=== PATIENT | female | born 1990 | race Caucasian/White ===

== ENCOUNTER 2020-06-22 13:24 | Emergency (ER) | payer MEDICAID ==
[~2020-06-22] VITALS: Ht 170.2 cm; Wt 77.1 kg
[2020-06-22 13:45] VITALS: BP 126/71
--- NOTE | 2020-06-22 13:45 | NUR ---
ED Nurse Note: Pt walked in from home c/o left lower abd pain, vomiting x 3, and left leg pain that started today. Pt denies diarrhea. Respirations even and unlabored on room air. vitals stable as documented. A+Ox4, speaking in complete sentences. Addendum: 06/22/20 at 1514 by [email or web address] ED Nurse Note: pt also having vaginal spotting
[2020-06-22] MEDS: Morphine Sulfate 2mg/ml Inj(IV/IM USE ONLY) IVP ONE ×2 (14:42→14:51)
--- NOTE | 2020-06-22 14:54 | NUR ---
ED Nurse Note: US @ bedside
[2020-06-22 15:34] LABS: ANION GAP 10 mmol/L (5-15); BLOOD UREA NITROGEN 7 mg/dL (7-18); CALCIUM 8.8 MG/DL (8.5-10.1); CARBON DIOXIDE 25 MMOL/L (21-32); CHLORIDE 104 MMOL/L (98-107); CREATININE 0.9 MG/DL (0.55-1.30); POTASSIUM 3.7 MMOL/L (3.5-5.1); SODIUM 139 MMOL/L (136-145)
[2020-06-22 15:39] LABS: ALANINE AMINOTRANSFERASE 17 U/L (12-78); ALBUMIN/GLOBULIN RATIO 1.1 (1.0-2.7); ALKALINE PHOSPHATASE 64 U/L (46-116); ASPARTATE AMINO TRANSFERASE 19 U/L (15-37); BILIRUBIN,TOTAL 0.8 MG/DL (0.2-1.0)
[2020-06-22 15:46] LABS: HEMATOCRIT 49.9 % (37.0-47.0); HEMOGLOBIN 16.2 G/DL (12.0-16.0); MEAN CORPUSCULAR VOLUME 111 FL (80-99); PLATELET COUNT 336 K/UL (150-450); RED BLOOD COUNT 4.51 M/UL (4.20-5.40); RED CELL DISTRIBUTION WIDTH 13.3 % (11.6-14.8); WHITE BLOOD COUNT 8.4 K/UL (4.8-10.8)
[2020-06-22 16:00] VITALS: BP 131/78
[2020-06-22] MEDS ORDERED: Morphine Sulfate 2mg/ml Inj(IV/IM USE ONLY) ONE (16:24)
[2020-06-22] MEDS ORDERED: Morphine Sulfate 2mg/ml Inj(IV/IM USE ONLY) IVP ONE (16:30)
--- NOTE | 2020-06-22 16:41 | Diagnostic Imaging Report ---
Indication: Pelvic pain, vaginal spotting for 3 weeks, positive test Technique: Transabdominal and transvaginal images of the pelvis. Doppler interrogation of the ovaries Comparison: none Findings: Uterus measures 8.1 cm length by 4.1 cm AP. The endometrium measures 4 mm thick. No myometrial abnormality. No intrauterine demonstrated. Free fluid is seen within the pelvis. The right ovary is somewhat enlarged, measuring 5.4 cm long axis dimension, demonstrates a benign-appearing cyst. It demonstrates normal Doppler signal. The left ovary is only visible on transabdominal images, measures 2.4 cm length, demonstrates normal Doppler signal. Impression: No intrauterine demonstrated. Differential considerations include very early , spontaneous , ectopic . Correlate with serial beta-hCGs, consider follow-up sonography as indicated. Free cul-de-sac fluid, most likely physiologic
--- NOTE | 2020-06-22 17:40 | Emergency Room Report ---
History of Present Illness General Chief Complaint: Abdominal Pain Source: Patient (Janeth Anand) Present Illness HPI 30-year-old female with no known past medical history , G2, here complaining of 1 week of right-sided abdominal pain especially right lower quadrant rating a 10 out of 10 without radiation. Also complains of vaginal spotting. Reports that she is not taking any control and has not had a menstruation in about a month. Denies any headache and dizziness. Denies nausea or vomiting. Denies any drug use. Denies cough and congestion, diarrhea. Reports that she has history of ectopic in the past. Sage cassandra at first refused any pain medication however kept insisting that however she going to be out of pain but did not want to take pain medication and did not want to take side effects. Upon ultrasound patient large ovarian cyst was observed right ovarian however no IUP noted most likely due to too early in the . [facility] Dr. Marte was consulted in regards to presentation of right ovary and ruling out possibility of ectopic . Patient was educated to follow-up with Dr. Marte for further evaluation. Patient kept asking the same question multiple times having boyfriend at bedside constantly interrupting my explanation. Patient could not understand how she can be and had an ovarian cyst. I explained the patient several times that patient is to follow- up with [facility]ICE TE[facility]/WELDER patient ordered as patient is based on hCG quantitative. No IUP was seen in OB ultrasound most likely due to too early in the however patient is to follow-up with [facility] to rule out other complications. Sent down progesterone level was done today at ED. I had my nurse Melyssa as a witness. (Janeth Anand) Allergies: Coded Allergies: No Known Allergies (Unverified , 06/22/20) COVID-19 Screening Contact w/high risk pt: No Experienced COVID-19 symptoms?: No COVID-19 Testing performed [employer]: Yes - a month ago COVID-19 Screening: Negative COVID-19 COVID-19 Testing Source: clinic (Janeth Anand) Patient History Past Medical History: see triage record Past Surgical History: none Pertinent Family History: none Last Menstrual Period: 2 months ago Now: No Immunizations: UTD Reviewed Nursing Documentation: PMH: Agreed; PSxH: Agreed (Janeth Anand) Nursing Documentation-H Past Medical History: No Stated History (Janeth Anand) Review of Systems All Other Systems: negative except mentioned in HPI (Janeth Anand) Physical Exam Vital Signs Date Time Temp Pulse Resp B/P (MAP) Pulse Ox O2 Delivery O2 Flow Rate FiO2 06/22/20 13:37 98.4 73 19 119/76 (90) 98 Room Air Sp02 EP Interpretation: reviewed General Appearance: no apparent distress, alert, GCS 15, non-toxic Head: normocephalic, atraumatic Eyes: bilateral eye normal inspection, bilateral eye PERRL ENT: hearing grossly normal, normal pharynx, no angioedema, normal voice Neck: full range of motion, supple, thyroid normal, no meningismus, no bony tend, supple/symm/no masses Respiratory: no respiratory distress, no retraction Cardiovascular #1: no edema, no gallop Gastrointestinal: non tender, soft, no mass, no organomegaly, no peritonitis, no bruit, non-distended, no guarding Genitourinary: no CVA tenderness Musculoskeletal: back normal Neurologic: alert, motor strength/tone normal, oriented x3, sensory intact, responsive, speech normal Psychiatric: judgement/insight normal, memory normal, mood/affect normal, no suicidal/homicidal ideation Skin: no rash Lymphatic: no adenopathy (Janeth Anand) Medical Decision Making PA Attestation All diagnosis and treatment plans were discussed and reviewed by my supervising physician Dr. Lopez (Janeth Anand) Diagnostic Impression: Primary Impression: Elevated serum hCG Additional Impressions: Ovarian cyst UTI (urinary tract infection) ER Course 30-year-old female with no known past medical history , G2, here complaining of 1 week of right-sided abdominal pain especially right lower quadrant rating a 10 out of 10 without radiation. Also complains of vaginal spotting. Reports that she is not taking any control and has not had a menstruation in about a month. Denies any headache and dizziness. Denies nausea or vomiting. Denies any drug use. Denies cough and congestion, diarrhea. Reports that she has history of ectopic in the past. Patient at first refused any pain medication however kept insisting that however she going to be out of pain but did not want to take pain medication and did not want to take side effects. Upon ultrasound patient large ovarian cyst was observed right ovarian however no IUP noted most likely due to too early in the . FILL[facility] UP Dr. Marte was consulted in regards to presentation of right ovary and ruling out possibility of ectopic . Patient was educated to follow-up with Dr. Marte for further evaluation. Patient kept asking the same question multiple times having boyfriend at bedside constantly interrupting my explanation. Patient could not understand how she can be and had an ovarian cyst. I explained the patient several times that patient is to follow- up with [facility]ELDER patient ordered as patient is based on hCG quantitative. No IUP was seen in OB ultrasound most likely due to too early in the however patient is to follow-up with [facility] to rule out other complications. Sent down progesterone level was done today at ED. I had my nurse Melyssa as a witness. Ddx considered but are not limited to: Ectopic , ruptured ovarian cyst, nonruptured ovarian cyst, UTI during , threatened , spontaneous , Vital signs: are WNL, pt. is afebrile H&PE are most consistent with: Elevated serum hCG, ovarian cyst, UTI ORDERS: UA, urine cx, CBC, CMP, abdominal ultrasound, Keflex, Tylenol ED INTERVENTIONS: Morphine Zofran DISCHARGE: At this time pt. is stable for d/c to home. Will provide printed patient care instructions, and any necessary prescriptions. Care plan and follow up instructions have been discussed with the patient prior to discharge. Medication as directed, follow-up with [facility] 24 to 48 hours, if worsening symptoms, worsening pain return to the emergency room (Janeth Anand) ER Course I was consulted by SAGE for help with medical mangement of this case. test is POSITIVE with indeterminate beta hCG. UDS was positive for marijuana. Ultrasound was obtained but was indeterminate, not able to identify a definitive IUP, no yolk sac or heart activity found Possibilities still include ectopic vs miscarriage Rh status is positive, Rhogam was not indicated. Unlikely ruptured ectopic at this time point, patients abdomen is not peritoneal, no significant tenderness. The patients presentation is not consistent with hemorrhagic ovarian cyst or torsion, and has no significant tenderness on exam. Patients hemoglobin is not severely low, vitals are hemodynamically stable, and no symptoms of severe anemia (near syncope, lightheadedness, severe fatigue), no indication for blood transfusion at this time. I spoke with Dr Marte who agrees that it is too early to say whether patient has early IUP vs ectopic at this time given stable Hgb, stable BP and vital signs, and no large free fluid on pelvic ultrasound. Does not recommend MTX at this time. He recommends outpatient follow up in 24-48 hrs with him for repeat beta hcg. He states that he will see her in his clinic. Recommends to send progesterone level prior to DC. The patient appears stable for discharge home and follow up here in the ED in 12-24 hrs for repeat HCG quant testing, reevaluation and further treatment. Strict 911 return precautions were discussed for any new, persistent or worsening symptoms. (Leann Lopez D.O.) CT/MRI/US Diagnostic Results CT/MRI/US Diagnostic Results : Imaging Test Ordered: Abdominal ultrasound Impression Findings: Uterus measures 8.1 cm length by 4.1 cm AP. The endometrium measures 4 mm thick. No myometrial abnormality. No intrauterine demonstrated. Free fluid is seen within the pelvis. The right ovary is somewhat enlarged, measuring 5.4 cm long axis dimension, demonstrates a benign-appearing cyst. It demonstrates normal Doppler signal. The left ovary is only visible on transabdominal images, measures 2.4 cm length, demonstrates normal Doppler signal. Impression: No intrauterine demonstrated. Differential considerations include very early , spontaneous , ectopic . Correlate with serial beta-hCGs, consider follow-up sonography as indicated. Free cul-de-sac fluid, most likely physiologic (Sahelimoghavami,Nahal PA) Diagnostic POCUS Bedside Ultrasound Diagnostics: Comment Transabdominal and transvaginal images of the pelvis. Doppler interrogation of the ovaries Findings: Uterus measures 8.1 cm length by 4.1 cm AP. The endometrium measures 4 mm thick. No myometrial abnormality. No intrauterine demonstrated. Free fluid is seen within the pelvis. The right ovary is somewhat enlarged, measuring 5.4 cm long axis dimension, demonstrates a benign-appearing cyst. It demonstrates normal Doppler signal. The left ovary is only visible on transabdominal images, measures 2.4 cm length, demonstrates normal Doppler signal. Impression: No intrauterine demonstrated. Differential considerations include very early , spontaneous , ectopic . Correlate with serial beta-hCGs, consider follow-up sonography as indicated. Free cul-de-sac fluid, most likely physiologic Dictated By: Ron Tejeda MD (Leann Lopez D.O.) Last Vital Signs Date Time Temp Pulse Resp B/P (MAP) Pulse Ox O2 Delivery O2 Flow Rate FiO2 06/22/20 13:45 79 20 Room Air 06/22/20 13:45 98.1 126/71 99 (Janeth Anand) Disposition: HOME, SELF-CARE Condition: Stable Scripts Acetaminophen* (ACETAMINOPHEN EXTRA STRENGTH*) 500 Mg Tablet 1000 MG ORAL Q8HR, #30 TAB 0 Refills Prov: Janeth Anand 06/22/20 Cephalexin* (KEFLEX*) 500 Mg Capsule 500 MG ORAL EVERY 12 HOURS for 7 Days, #14 CAP 0 Refills Prov: Janeth Anand 06/22/20 Referrals: [facility],REFERRING (PCP) Patient Instructions: Ovarian Cyst, [id number] Additional Instructions: Take medication as directed, follow-up with your primary care provider, you can follow-up with [facility], Dr. Marte in 24 to 48 hours, if worsening symptom return t o emergency room Janeth Anand Jun 22, 2020 17:40 Leann Lopez D.O. Jun 23, 2020 15:54
[2020-06-22] MEDS ORDERED: ACETAMINOPHEN500 M3 ORAL (17:53)
[2020-06-22] MEDS ORDERED: CEPHALEXIN500 MG ORAL (17:53)
[2020-06-22 18:15] VITALS: BP 133/78
[2020-06-22] MEDS ORDERED: Acetaminophen 500mg (ES) tab ORAL ONE (18:15)
--- NOTE | 2020-06-22 18:15 | NUR ---
ER DISCHARGE NOTE: Patient is cleared to be discharged per ERMD, pt is aox4, on room air, with stable vital signs. pt was given dc and prescription instructions, pt was able to verbalize understanding, pt id band and iv site removed without complications. pt is able to ambulate with steady gait. pt took all belongings.
[2020-06-22 18:17] LABS: APPEARANCE,URINE SLIGHTLY CLOUDY; BILIRUBIN, URINE NEGATIVE (NEGATIVE); GLUCOSE, URINE (UA) NEGATIVE (NEGATIVE); KETONES,URINE 3+ (NEGATIVE); LEUKOCYTE ESTERASE ,URINE 1+ (NEGATIVE); NITRITE,URINE NEGATIVE (NEGATIVE); PH,URINE 8 (4.5-8.0); PROTEIN,URINE 2+ (NEGATIVE); UROBILINOGEN,URINE 1 MG/DL (0.0-1.0)
[2020-06-22 18:26] LABS: COLOR,URINE RED
--- NOTE | 2020-06-23 11:52 | Emergency Room Report ---
Physical Exam Vital Signs Date Time Temp Pulse Resp B/P (MAP) Pulse Ox O2 Delivery O2 Flow Rate FiO2 06/22/20 13:37 98.4 73 19 119/76 (90) 98 Room Air Medical Decision Making Diagnostic Impression: Primary Impression: Elevated serum hCG Additional Impressions: Ovarian cyst UTI (urinary tract infection) ER Course Contacted by radiology this morning at on review of ultrasound from patient's visit There was noted to be some material within the fluid in the cul-de-sac causing increased concern for ruptured ectopic . Patient was contacted at home and informed of this. She states she is feeling better and has made an appointment through her PMD to see [facility] [employer]. I instructed her to call this [employer] [employer] DRIVER and inform her of these new findings to be seen as soon as possible for repeat evaluation, repeat imaging and further lab test as needed. He was instructed to call records department for copies of these reports and labs. I also instructed her to return to this emergency department should she have any new or worsening symptoms or if she wishes to seek reevaluation here. She understood and agreed with this plan. Last Vital Signs Date Time Temp Pulse Resp B/P (MAP) Pulse Ox O2 Delivery O2 Flow Rate FiO2 06/22/20 18:15 98.3 79 20 133/78 98 Room Air Disposition: HOME, SELF-CARE Condition: Stable Scripts Acetaminophen* (ACETAMINOPHEN EXTRA STRENGTH*) 500 Mg Tablet 1000 MG ORAL Q8HR, #30 TAB 0 Refills Prov: Janeth Anand 06/22/20 Cephalexin* (KEFLEX*) 500 Mg Capsule 500 MG ORAL EVERY 12 HOURS for 7 Days, #14 CAP 0 Refills Prov: Janeth Anand 06/22/20 Referrals: [facility],REFERRING (PCP) Juarez Marte MD Patient Instructions: Ovarian Cyst, [id number] Additional Instructions: Take medication as directed, follow-up with your primary care provider, you can follow-up with AS[facility] DRIVER, Dr. Marte in 24 to 48 hours, if worsening symptom return to emergency room Michael Reyna MD Jun 23, 2020 11:52
== END 2020-06-22 18:15 | disposition home or self-care (01) ==
LOC: EMR 15:25
DX: R79.89 Other specified abnormal findings of blood chemistry (principal); N83.209 Unspecified ovarian cyst, unspecified side; N39.0 Urinary tract infection, site not specified; R10.31 Right lower quadrant pain
CPT/HCPCS: 36415; 76830; 76856; 80053; 80307; 81003; 81025; 83690; 84144; 84702; 85007; 85025; 86850; 86900; 86901; 96361; 96374; 96375; 96376; 99284; J2405; J7030